=== PATIENT | female | born 2000 | race Asian ===

== ENCOUNTER 2019-02-23 06:18 | Day surgery (SDC) | payer OTHER ==
[~2019-02-23 06:18] MED LIST: Buffered Lidocaine 1% SYRIN* 1 ML/SYRINGE INTRADERM ONE; Dexamethasone IV* 4 MG/ML 1 ML (4 MG) IV SLOW PU ONE; Dexamethasone IV* 4 MG/ML 1 ML (4 MG) ONE; Famotidine IV* 10 MG/ML 2 ML (20 mg) IV ONE; Lactated Ringers 1000 ML Bag* 1,000 ML IV SCH
[2019-02-23] MEDS ORDERED: Famotidine IV* 10 MG/ML 2 ML (20 mg) ONE (06:19)
[2019-02-23] MEDS ORDERED: ceFAZolin 2 GM PREMIX in ORs 2 GM/50 ML BAG ONE (06:45)
[2019-02-23] MEDS ORDERED: Buffered Lidocaine 1% SYRIN* 1 ML/SYRINGE INTRADERM ONE (06:51)
[2019-02-23] MEDS ORDERED: Lidocaine 1% w EPI 1:200,000* SDV 30 ML VIAL ONE (07:03)
[2019-02-23] MEDS ORDERED: Ropivacaine 0.2% * 2 MG/ML VIAL ONE (07:03)
[2019-02-23] MEDS ORDERED: Midazolam* 1 MG/ML 2 ML VIAL (2 MG) ONE (07:11)
[2019-02-23] MEDS ORDERED: Atracurium* 10 MG/ML 10 ML VIAL ONE (07:11)
[2019-02-23] MEDS ORDERED: fentaNYL* 50 MCG/ML 5 ML VIAL (250 MCG VIAL) ONE (07:11)
[2019-02-23] MEDS ORDERED: Ondansetron INJ* 2 MG/ML VIAL ONE (07:13)
[2019-02-23] MEDS ORDERED: Propofol* 10 MG/ML 20 ML BTL ONE (07:13)
[2019-02-23] MEDS ORDERED: Lidocaine 2% PF * 5 ML VIAL ONE (07:13)
[2019-02-23] MEDS ORDERED: Ketorolac INJ* 30 MG/ML 1 ML VIAL ONE (07:13)
[2019-02-23] MEDS ORDERED: Scopolamine 1.5 mg* PATCH TRANSDERM PRN (07:53)
[2019-02-23] MEDS ORDERED: fentaNYL* 50 MCG/ML 2 ML VIAL (100 MCG VIAL) IV PRN (07:53)
[2019-02-23] MEDS ORDERED: oxyCODONE/Acetamin 5/325 MG* TAB PO PRN (07:53)
[2019-02-23] MEDS ORDERED: DiMENhydriNATE IV* 50 MG/ML VIAL IV PUSH PRN (07:53)
[2019-02-23] MEDS ORDERED: Ondansetron INJ* 2 MG/ML VIAL IV PRN (07:53)
[2019-02-23] MEDS ORDERED: HYDROmorphone INJ1* 1 MG/ML SYRINGE IV PRN (07:53)
[2019-02-23] MEDS ORDERED: Naloxone* 0.4 MG/ML 1 ML VIAL IV PRN (07:53)
[2019-02-23 10:48] VITALS: BP 117/73
--- NOTE | 2019-02-24 16:03 | OP ---
CC: PCP (?). DATE OF OPERATION: 02/23/19 [facility] DATE OF : 99 SURGEON: Adrianne Knott MD SERVICE STATION CONSOLE OPERATOR: AGAPITO Linares. An legal support assistant was needed for the entirety of the case to help with positioning, retraction, and was utilized throughout all portions of the case. ANESTHESIOLOGIST: Dr. Eason. ANESTHESIA: General. PRE-OP DIAGNOSIS: Left knee grade 3 ACL rupture POST-OP DIAGNOSIS: Left knee grade 3 ACL rupture with lateral meniscal fraying OPERATIVE PROCEDURE: Left knee arthroscopy with: 1. ACL reconstruction using BTB autograft. 2. Partial lateral meniscectomy. COMPLICATIONS: None. TOURNIQUET TIME: 18 minutes at 250 mmHg. IMPLANTS USED: Lazaro and Nephew SoftSilk, one is 9 x 25 and the other is 7 x 20. INDICATIONS: Leah Carlin is a 18-year-old female who was playing soccer on 12/28 when she sustained injury to her knee. She has failed conservative management and elected to proceed with surgical treatment. Her family is in [place] and will be relocating near there and would like to proceed with surgery here and follow up down there. After extensive discussion of the risks and benefits of operative versus nonoperative treatment, she has elected to proceed with surgical treatment. Risks included, but are not limited to bleeding; infection; damage to nerves, vessels, surrounding structures; wound nonhealing; persistent pain; need for further surgery; scarring; stiffness; incomplete relief of symptoms; risks of anesthesia. DESCRIPTION OF PROCEDURE: The patient was greeted in the preoperative area by the attending surgeon. Correct extremity was marked. Consent was confirmed. The patient was then brought back to the operating suite where she was placed in the supine position on the operating table. She then underwent general anesthesia and LMA intubation, after which she was appropriately positioned on the bed. A lateral post was positioned. A beanbag was placed to keep the knee at 90 degrees. An unsterile tourniquet was placed high on the proximal thigh. The leg was then prepped and draped in the usual sterile fashion beginning with chlorhexidine soap, scrub, and alcohol wipe, and a final prep with ChloraPrep. After appropriate surgical pause indicating side, site, procedure, and administration of antibiotics, the knee was intra-articularly injected with 1% lidocaine with epi. The limb was exsanguinated and the tourniquet inflated to 250 mmHg. A 15-blade was used to make an incision about the midline of the patella, cheating somewhat medially. The soft tissues were carefully dissected to expose the paratenon, which was then incised and saved for later closure. The patellar tendon was identified. It was quite thin. It was about 30 mm and quite narrow. The center 10 mm was then harvested in full-thickness flaps. The bone block was then harvested proximally with 9 x 23 mm, distally 10 x 30. Once it was harvested using sagittal saw and osteotome, it was then prepared on the back table by the legal support assistant. The tendon was then closed in full-thickness flaps using 0 Vicryl in an interrupted fashion. Tourniquet was then deflated for a total time of 18 minutes. Attention was directed to the arthroscopy. A lateral portal made through the capsule. The scope was brought into the joint and the joint was examined. There was evidence of a grade 3 ACL rupture with scarring to the PCL. The patellofemoral joint had grade 0 changes. The medial and lateral gutters were intact. The medial compartment had grade 0 changes with an intact meniscus laterally. There was some fraying about the body and the root of the meniscus. This was then debrided back using the shaver. Then, attention was directed to the ACL. The stump was then debrided back using the elliot and biters. An electrocautery device was used to prepare the footprints. Once the lateral femoral condyle was prepared, a provisional starting point was then marked for reference point for placement. The scope was then positioned through the medial portal to visualize this to confirm. Then, attention was directed to the ACL. The tip-to-tip guide was placed at 50 degrees and the guidewire was then placed under direct and arthroscopic visualization. This was then overdrilled once this was appropriately positioned with a size 10 mm full-bore reamer. The edges of the tunnel were then rasped. All excess debris was removed. The bone graft was saved for later grafting of the patellar defect. Care was placed to prevent fluid egress. The knee was then hyperflexed. With the Lazaro and Nephew straight guide placed in the center of the femoral tunnel, the Beath pin was then placed through the center and confirmed that it came out of the lateral aspect of the IT band. This was then overdrilled with a 9 mm low-profile reamer to a depth of about 25 mm. All excess bony debris was removed. The tunnel was notched. A #2 Ethibond was passed through the eyelet of the Beath pin and passed through the lateral wall. The sutures were then passed through the tibial tunnel and the graft was then brought to the operating table and placed under direct arthroscopic visualization until it was well seated. It was then secured with a 7 x 20 mm SoftSilk screw with excellent purchase. The knee was then taken through full extension and was found to have no impingement anteriorly. The knee was then cycled approximately 15 times to remove any creep from the graft. The scope was brought back to the joint. The graft was found to be appropriately positioned. The knee was then placed in about 20 to 30 degrees of flexion with tension on the tibial sutures. The tibial bone lock was then secured using a 9 x 25 mm screw with excellent purchase. The knee was taken through full range of motion. Nani was found to be stable. The scope was brought back to the joint and found to have well positioned graft. The wounds were then copiously irrigated with sterile saline. The excess bone block about the tibial suture was then excised. The bone graft was placed in the patellar defect and then oversewn with 0 Vicryl. The paratenon was closed with 2-0 Vicryl in a running fashion. Any excess bone graft was placed on the tibial tunnel. The wounds were irrigated again. The skin was closed in layers with 3-0 Monocryl for subcutaneous stitches and 3-0 Monocryl running. The wounds were copiously irrigated. The wound was locally and intra-articularly injected with 0.2% ropivacaine. Sterile dressings were applied, Cryo/Cuff and a hinged knee brace locked in extension. She was awoken from anesthesia and transferred to the PACU in stable condition. POSTOPERATIVE PLAN: She will be weightbearing as tolerated. She will be discharged on pain medication and antibiotics. DVT prophylaxis was considered, but deferred due to no previous personal or family history. I will see the patient back in 6 to 8 days. [id number]/[facility] #: [id number] TAMMI
== END 2019-02-23 10:35 | disposition home or self-care (01) ==
LOC: OREAST 06:18
PROVIDERS: ATTEND Orthopaedic Surgery
DX: S83.512A Sprain of anterior cruciate ligament of left knee, initial encounter (principal); S83.282A Other tear of lateral meniscus, current injury, left knee, initial encounter; X58.XXXA Exposure to other specified factors, initial encounter; Y93.66 Activity, soccer; Y92.322 Soccer field as the place of occurrence of the external cause; F41.8 Other specified anxiety disorders
CPT/HCPCS: 81025; C1713; J0690; J1100; J1885; J2001; J2250; J2405; J2704; J2795; J3010

== ENCOUNTER 2019-03-06 00:31 | Emergency (ER) | payer OTHER ==
--- OUTSIDE RECORDS SUMMARY | 2019-03-06 00:43 | XMS REPORT | Continuity of Care Document ---
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 Problems Provider Date Sprain of cruciate ligament of knee Adrianne Knott MD Onset: 02/03/2019 Social History Type Date Description Comments Sex Unknown ETOH Use Occasionally consumes alcohol Tobacco Use Start: Unknown Patient has never smoked Smoking Status Reviewed: 02/03/19 Patient has never smoked Exercise Exercises regularly soccer, school Type/Frequency sports Allergies, Adverse Reactions, Alerts Description No Known Drug Allergies Medications Description No Active Medications Immunizations Description No Information Available Vital Signs Date Vital Result Comment 02/03/2019 1:29pm Height 68 inches 5'8" Weight 130.00 lb Heart Rate 76 /min BP Systolic 104 mmHg BP Diastolic 56 mmHg Respiratory Rate 16 /min Pain Level 1 BMI (Body Mass Index) 19.8 kg/m2 Height Percentile 93 % Weight Percentile 54th 01/06/2019 1:52pm Height 68 inches 5'8" Weight 130.00 lb Heart Rate 60 /min BP Systolic Sitting 116 mmHg BP Diastolic Sitting 64 mmHg Body Temperature 98.2 F Pain Level 0 BMI (Body Mass Index) 19.8 kg/m2 Height Percentile 93 % Weight Percentile 54th Results Description No Information Available Procedures Description No Information Available Medical Devices Description No Information Available Encounters Type Date Location Provider Dx Diagnosis Office Visit 01/06/2019 [facility] Adrianne Knott MD S83.512A Sprain of 1:30p at [place] anterior cruciate ligament of left knee, init Assessments Date Code Description Provider 02/03/2019 S83.512A Sprain of anterior cruciate ligament of left Adrianne Knott MD knee, initial encounter 01/06/2019 S83.512A Sprain of anterior cruciate ligament of left Adrianne Knott MD knee, initial encounter Plan of Treatment Future Appointment(s):02/23/2019 7:30 am - Adrianne Knott MD at [facility] at [facility]/03/2019 - Adrianne Knott [id number] Sprain of anterior cruciate ligament of left knee, initial encounterFollow up:Follow up: for h and p or 6-8 days post op Functional Status Description No Information Available Mental Status Description No Information Available Referrals Description No Information Available
--- OUTSIDE RECORDS SUMMARY | 2019-03-06 00:43 | XMS REPORT | Continuity of Care Document ---
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 Problems Description No Information Available Social History Type Date Description Comments Sex Unknown ETOH Use Occasionally consumes alcohol Tobacco Use Start: Unknown Patient has never smoked Smoking Status Reviewed: 01/06/19 Patient has never smoked Exercise Exercises regularly soccer, school Type/Frequency sports Allergies, Adverse Reactions, Alerts Description No Known Drug Allergies Medications Description No Active Medications Immunizations Description No Information Available Vital Signs Date Vital Result Comment 01/06/2019 1:52pm Height 68 inches 5'8" Weight 130.00 lb Heart Rate 60 /min BP Systolic Sitting 116 mmHg BP Diastolic Sitting 64 mmHg Body Temperature 98.2 F Pain Level 0 BMI (Body Mass Index) 19.8 kg/m2 Height Percentile 93 % Weight Percentile 54th Results Description No Information Available Procedures Description No Information Available Medical Devices Description No Information Available Encounters Description No Information Available Assessments Date Code Description Provider 01/06/2019 S83.512A Sprain of anterior cruciate ligament of left Adrianne Knott MD knee, initial encounter Plan of Treatment Future Appointment(s):02/03/2019 1:30 pm - Adrianne Knott MD at [facility]01/06/2019 - Adrianne Knott [id number] Sprain of anterior cruciate ligament of left knee, initial encounterNew Therapy:Physical TherapyFollow up:Follow up: 4-5 weeks Functional Status Description No Information Available Mental Status Description No Information Available Referrals Description No Information Available
--- NOTE | 2019-03-06 01:59 | ED ---
Lower Extremity - HPI Summary HPI Summary: This pt is a 18 Y/O F presenting to [facility] with her friends and a CC of bruising and increased pain in her L knee following a surgery on 02/23/19 for an ACL repair. She states that she is currently concerned for a blood clot and rates the pain a 4/10 in severity. She states that the pain travels down her leg into her ankle along with the bruising. She denies no decrease in ROM, fevers, chills , N/V, or SOB. She states that the pain is aggravated when she lays down. She states alleviating factors when shes walking around. She states that she takes her prescribed pain medications at night but states that it isnt working anymore. She states that she has started to 600 mgs of ibuprofen 4 times a day in cohesion with the Percocet. She states that she has no pertinent FHx of PMHx. - History of Current Complaint Chief Complaint: EDExtremityLower Stated Complaint: POS BLOOD CLOT IN L LEG PER PT Time Seen by Provider: 03/06/19 01:42 Hx Obtained From: Patient Mechanism Of Injury: Other - recent ACL surgery Onset of Pain: Days - 02/23/19 Onset/Duration: Days Severity Initially: Moderate Severity Currently: Moderate Pain Intensity: 4 Pain Scale Used: 0-10 Numeric Timing: Constant Location: Is Diffuse - LE Associated Signs And Symptoms: Positive: Negative - decrease in ROM, chills, N/V , or SOB, Swelling, Bruising, Knee Pain. Negative: Fever Aggravating Factor(s): Other - lying down flat Alleviating Factor(s): Other - walking Able to Bear Weight: Yes - Allergies/Home Medications Allergies/Adverse Reactions: Allergies Allergy/AdvReac Type Severity Reaction Status Date / Time No Known Allergies Allergy Verified 03/06/19 00:36 Home Medications: Home Medications oxyCODONE/Acetamin 5/325 MG* [Percocet 5/325 TAB*] 1 tab PO Q6H PRN 03/06/19 [ History Confirmed 03/06/19] PMH/Surg Hx/FS Hx/Imm Hx Previously Healthy: Yes Endocrine/Hematology History: Denies: Hx Diabetes Cardiovascular History: Denies: Hx Hypertension, Hx Pacemaker/ICD Respiratory History: Denies: Hx Asthma Musculoskeletal History: Reports: Other Musculoskeletal History - LEFT KNEE LIGAMENT TEAR Sensory History: Reports: Hx Contacts or Glasses - BOTH Denies: Hx Hearing Aid Opthamlomology History: Reports: Hx Contacts or Glasses - BOTH Psychiatric History: Reports: Hx Anxiety Denies: Hx Panic Disorder - Surgical History Surgery Procedure, Year, and Place: LEFT KNEE BIOPSY,WISDOM TEETH, Left knee acl repair Hx Anesthesia Reactions: No - Immunization History Immunizations Up to Date: Yes Infectious Disease History: No Infectious Disease History: Denies: Traveled Outside the [place] in Last 30 Days - Family History Known Family History: Negative: Cardiac Disease, Hypertension, Diabetes - Social History Occupation: Student - [employer] Lives: Dormitory/Roommates Alcohol Use: Occasionally Hx Substance Use: No Substance Use Type: Reports: None Hx Tobacco Use: No Smoking Status (MU): Never Smoked Tobacco Have You Smoked in the Last Year: No Household Exposure: No Review of Systems - ROS Summary Review of Systems Summary: Home Medications Medication Instructions Recorded Confirmed Type oxyCODONE/Acetamin 5/325 MG* 1 tab PO Q6H PRN 03/06/19 03/06/19 History [Percocet 5/325 TAB*] Negative: Fever, Chills Negative: Shortness Of Breath Negative: Vomiting, Nausea Positive: Other - Knee and LE pain . Negative: Decreased ROM Positive: Bruising - LE All Other Systems Reviewed And Are Negative: Yes Physical Exam - Summary Physical Exam Summary: General: Well-developed, Well-nourished female. No acute distress. HEENT: Normocephalic, Atraumatic. Eyes: Conjuctiva normal, PERRL. Ears: TMs within normal limits. Nares: (-) discharge, (-) erythema. Oropharynx: Clear, mucous membranes moist, (-) exudates. Neck: Soft, FROM, (-) lymphadenopathy, (-) thyromegaly, (-) JVD. Cardiovascular: Normal sinus rhythm, (-) murmur. Lungs: Clear to auscultation bilaterally (-) wheezes, (-) rales, (-) rhonchi. Abdomen: Soft, non-tender, non-distended, (-) organomegaly, normal bowel sounds. Back: (-) CVA tenderness Extremities: No edema. Skin: Warm, dry, (-) rash. Neuro: Alert and oriented x3, no focal deficits. Psychiatric: Mood normal, affect normal. Triage Information Reviewed: Yes Vital Signs On Initial Exam: Initial Vitals Temp Pulse Resp BP Pulse Ox 98.9 F 82 16 124/75 98 03/06/19 00:33 03/06/19 00:33 03/06/19 00:33 03/06/19 00:33 03/06/19 00:33 Vital Signs Reviewed: Yes Procedures - Sedation Patient Received Moderate/Deep Sedation with Procedure: No Diagnostics - Vital Signs Vital Signs Temp Pulse Resp BP Pulse Ox 03/06/19 01:04 79 99 03/06/19 00:33 98.9 F 82 16 124/75 98 - Laboratory Lab Statement: Any lab studies that have been ordered have been reviewed, and results considered in the medical decision making process. Re-Evaluation - Re-Evaluation First Eval Re-Evaluation Time: 02:05 Change: Improved Comment: I have discussed results with the patient and her bruising is resolved. Discussed symptoms that warrant immediate return to ED Lower Extremity Course/Dx - Course Course Of Treatment: 18-year-old female with ACL surgery 11 days ago. Now with increased tenderness and bruising of her left lower leg. Patient states the recovering well until about Saturday when she started noticing bruising and tenderness. Which has worsened. She states she is trying to elevate it but she is also going to classes. She denies any fevers or chills. No chest pain, cough, shortness of breath. On exam she has ecchymosis on her medial left lower leg and medial foot area. She has no palpable cords. No posterior calf tenderness. Negative Homans. Discussed at length with patient. Advised ice, elevation, anti-inflammatories and Tylenol. Follow-up with referral for any worsening symptoms. - Diagnoses Provider Diagnoses: Postoperative ecchymosis, Lower extremity pain Discharge ED - Sign-Out/Discharge Documenting (check all that apply): Patient Departure - discharge - Discharge Plan Condition: Stable Disposition: HOME Patient Education Materials: Pain Management (ED), Hematoma (ED) Referrals: [facility] [Provider Group] - 2 Days Additional Instructions: PLEASE RETURN TO THE EMERGENCY DEPARTMENT FOR ANY NEW OR WORSENING SYMPTOMS. FOLLOW UP WITH [facility] IN 1-3 DAYS. Remember to elevate and ice your consistently throughout the day when you are at home. This will help the blood to return to the blood stream and reduce the amount of pain associated with the bruising. - Billing Disposition and Condition Condition: STABLE Disposition: Home - Attestation Statements Document Initiated by Scribe: Yes Documenting Scribe: Bravo King Provider For Whom Mtibe is Documenting (Include Credential): Moni Ocampo MD Scribe Attestation: IBravo, scribed for Moni Ocampo MD on 03/06/19 at 0423. Scribe Documentation Reviewed: Yes Provider Attestation: The documentation as recorded by the Bravo alberts accurately reflects the service I personally performed and the decisions made by me, Moni Ocampo MD Status of Scribe Document: Viewed
[2019-03-06 02:23] VITALS: BP 118/72
[2019-03-06] MEDS: Acetaminophen TAB* 325 MG PO ONE (02:29)
[2019-03-06] MEDS: diPHENhydraMINE PO* 50 MG PO ONE (02:29)
== END 2019-03-06 02:15 | disposition home or self-care (01) ==
LOC: ED 00:31
DX: L76.32 Postprocedural hematoma of skin and subcutaneous tissue following other procedure (principal); M79.605 Pain in left leg
CPT/HCPCS: 99282; A9270-GY